=== PATIENT | male | born 1945 | race Two or more races ===

== ENCOUNTER 2018-11-10 09:15 | Outpatient (CLI) | payer OTHER | END 2018-11-10 09:20 | disposition home or self-care (01) | LOC: RAD 09:15 | DX: M54.2 Cervicalgia (principal) ==

== ENCOUNTER 2019-01-18 08:33 | Outpatient (CLI) | payer OTHER | END 2019-01-18 08:36 | disposition home or self-care (01) | LOC: TOM 08:33 | DX: G44.89 Other headache syndrome (principal) ==

== ENCOUNTER 2019-02-21 07:51 | Outpatient (CLI) | payer OTHER | END 2019-02-21 07:54 | disposition home or self-care (01) | LOC: TOM 07:51 | DX: R55 Syncope and collapse (principal) | CPT/HCPCS: 70460; Q9965 ==

== ENCOUNTER 2019-05-27 11:02 | Outpatient (CLI) | payer OTHER | END 2019-05-27 17:09 | disposition home or self-care (01) | LOC: LAB 11:02 | DX: N20.0 Calculus of kidney (principal) ==

== ENCOUNTER 2019-06-01 09:27 | Outpatient (CLI) | payer OTHER | END 2019-06-01 09:29 | disposition home or self-care (01) | LOC: TOM 09:27 | DX: I25.10 Atherosclerotic heart disease of native coronary artery without angina pectoris (principal); E78.2 Mixed hyperlipidemia | CPT/HCPCS: 74177; Q9965 ==

== ENCOUNTER → 2019-10-10 | Outpatient (CLI) | payer OTHER | END | disposition home or self-care (01) | LOC: TOM 06-01 09:00 | DX: M25.571 Pain in right ankle and joints of right foot (principal) ==

== ENCOUNTER 2020-12-16 06:23 | Emergency (ER) | payer OTHER ==
[~2020-12-16] VITALS: Ht 180.3 cm; Wt 90.7 kg
[2020-12-16] MEDS ORDERED: FORTAMET500 MG (06:37)
[2020-12-16] MEDS ORDERED: COZAAR25 MG (06:37)
[2020-12-16] MEDS ORDERED: TAMS0.4C (06:38)
== END 2020-12-16 11:08 | disposition home or self-care (01) ==
LOC: ER 06:23
DX: R35.0 Frequency of micturition (principal); K59.09 Other constipation

== ENCOUNTER 2021-02-01 10:37 | Outpatient (CLI) | payer OTHER | END 2021-02-01 10:44 | disposition home or self-care (01) | LOC: LAB 10:37 | PROVIDERS: ATTEND Radiology Diagnostic Radiology | DX: I10 Essential (primary) hypertension (principal); Z51.81 Encounter for therapeutic drug level monitoring ==

== ENCOUNTER → 2021-02-01 | Outpatient (CLI) | payer OTHER ==
[~2021-02-01] MED LIST: COZAAR25 MG; FORTAMET500 MG; TAMS0.4C
== END | disposition home or self-care (01) ==
LOC: TOM 11:06
DX: R10.84 Generalized abdominal pain (principal); R63.4 Abnormal weight loss
CPT/HCPCS: 74178; Q9965

== ENCOUNTER 2021-07-17 12:55 | Outpatient (CLI) | payer OTHER | END 2021-07-17 13:36 | disposition home or self-care (01) | LOC: SONOGRAMA 12:55 | PROVIDERS: ATTEND Family Medicine | DX: M75.110 Incomplete rotator cuff tear or rupture of unspecified shoulder, not specified as traumatic (principal) ==